=== PATIENT | male | born 1945 | race African-American/Black ===

== ENCOUNTER 2023-11-25 19:56 | Inpatient (IN) | payer OTHER ==
[2023-11-25] MEDS ORDERED: ACETAMINOPHEN INJECTION 100 ML IVPB ONE (20:32)
[2023-11-25] MEDS ORDERED: LIDOCAINE 4% PATCH TP ONE (21:03)
[2023-11-25 21:04] LABS: BASO % 0.5 % (0-2.0); EOS % 1.2 % (0-4.5); HEMATOCRIT 37.1 % (35.4-49); HEMOGLOBIN 12.4 GM/dL (11.7-16.9); LYMPH % 16.2 % (8-40); MCHC 33.5 g/dl (32.0-35.9); MEAN CELL VOLUME 95.5 fl (80-96); MEAN PLT VOLUME 7.5 fl (7.5-11.1); MONO % 11.7 % (3.8-10.2); NEUT % 70.4 % (42.8-82.8); PLATELET COUNT 268 10^3/uL (134-434); RBC 3.88 M/mm3 (4.00-5.60); RDW 14.7 % (11.9-15.9); WHITE BLOOD COUNT 9.4 K/mm3 (4.0-10.0)
[2023-11-25] MEDS ORDERED: KETOROLAC TROMETHAMINE 15 MG/ML VIAL ONE (21:04)
[2023-11-25] MEDS: LIDOCAINE 4% PATCH TP ONE (21:27)
[2023-11-25] MEDS: KETOROLAC TROMETHAMINE 15 MG/ML VIAL IVPUSH ONE (21:27)
[2023-11-25] MEDS: ACETAMINOPHEN 1000 MG/100 ML BAG IVPB ONE ×2 (21:27→21:28)
[2023-11-25] MEDS: LIDOCAINE PATCH REMOVAL MC SCH (21:32)
[2023-11-25] MEDS: morphine CARPU-JECT 4 MG/1 ML DISP.SYRIN IVPUSH ONE (21:32)
[2023-11-25 21:44] LABS: POTASSIUM 4.4 mmol/L (3.5-5.1)
[2023-11-25 21:46] LABS: CALCIUM 8.7 mg/dL (8.5-10.1)
[2023-11-25 21:47] LABS: ALBUMIN 3.8 g/dl (3.4-5.0); BLOOD UREA NITROGEN 39.8 mg/dL (7-18)
[2023-11-25 21:49] LABS: CREATININE 3.1 mg/dL (0.55-1.3)
[2023-11-25 21:51] LABS: TOT PROT 7.5 g/dl (6.4-8.2)
[2023-11-25 21:52] LABS: BILIRUBIN,TOTAL 0.5 mg/dL (0.2-1)
[2023-11-25] MEDS: SODIUM CHLORIDE 0.9% 500 ML INFUS.BAG IV ONE (22:12)
[2023-11-25 22:33] LABS: EPI CELLS 3 /uL (0-25.1); HYALINE CASTS 0 /uL (0-3.1); URINE APPEARANCE CLEAR; URINE BACTERIA 2 /uL (0-1359); URINE BILIRUBIN NEGATIVE (NEGATIVE); URINE COLOR YELLOW; URINE GLUCOSE (UA) 2+ (NEGATIVE); URINE KETONE NEGATIVE (NEGATIVE); URINE LEUK ESTERASE NEGATIVE (NEGATIVE); URINE NITRITE NEGATIVE (NEGATIVE); URINE PROTEIN 1+ (NEGATIVE); URINE RBC 6 /uL (0-23.9); URINE WBC 12 /uL (0-25.8)
[2023-11-25] MEDS ORDERED: ACETAMINOPHEN 325 MG TABLET (FP) PO PRN (22:48)
[2023-11-25] MEDS ORDERED: KETOROLAC TROMETHAMINE 15 MG/ML VIAL IVPUSH PRN (22:48)
[2023-11-25] MEDS ORDERED: CEFTRIAXONE 1 GM/50 ML BAG ONE (23:39)
[2023-11-25] MEDS: CEFTRIAXONE 1 GM in DEXTROSE 5%-WATER - 50 ML IVPB SCH (23:49)
[2023-11-25] MEDS: SODIUM CHLORIDE 1,000 ML IV SCH (23:50)
[2023-11-26] MEDS: NIFEdipine 10 MG CAPSULE (FP) PO ONE (02:17)
[2023-11-26] MEDS: LACTATED RINGERS SOLUTION 1,000 ML/1,000 ML INFUS.BAG IV SCH (02:17)
[2023-11-26] MEDS ORDERED: NIFEdipine 10 MG CAPSULE (FP) PO SCH (06:00)
[2023-11-26] MEDS: hydrALAZINE HCL 20 MG/ML VIAL IVPUSH PRN (06:48)
[2023-11-26] MEDS: LABETALOL HCL 200 MG TABLET (FP) PO SCH (06:59)
[2023-11-26 08:06] LABS: BASO % 0.4 % (0-2.0); EOS % 2.9 % (0-4.5); HEMATOCRIT 38.7 % (35.4-49); HEMOGLOBIN 12.9 GM/dL (11.7-16.9); LYMPH % 22.6 % (8-40); MCH 32.3 pg (25.7-33.7); MCHC 33.4 g/dl (32.0-35.9); MEAN CELL VOLUME 96.7 fl (80-96); MEAN PLT VOLUME 7.9 fl (7.5-11.1); NEUT % 63.1 % (42.8-82.8); PLATELET COUNT 270 10^3/uL (134-434); RDW 14.6 % (11.9-15.9); WHITE BLOOD COUNT 9.6 K/mm3 (4.0-10.0)
[2023-11-26 08:13] LABS: POTASSIUM 4.6 mmol/L (3.5-5.1)
[2023-11-26 08:18] VITALS: BMI 30.4
[2023-11-26 08:19] LABS: CALCIUM 8.8 mg/dL (8.5-10.1)
[2023-11-26 08:20] LABS: BLOOD UREA NITROGEN 34.3 mg/dL (7-18); MAGNESIUM 2.4 mg/dL (1.8-2.4)
[2023-11-26 08:22] LABS: CREATININE 2.7 mg/dL (0.55-1.3); PHOSPHOROUS 2.6 mg/dL (2.5-4.9)
[2023-11-26 08:24] LABS: BILIRUBIN,TOTAL 0.5 mg/dL (0.2-1); TOT PROT 8.1 g/dl (6.4-8.2)
[2023-11-26] MEDS: TAMSULOSIN HCL 0.4 MG CAP PO SCH (08:40)
[2023-11-26] MEDS: amLODIPine BESYLATE 10 MG TABLET (FP) PO SCH (09:05)
[2023-11-26] MEDS: HEPARIN NA (PORCINE) 5,000 UNITS/ML 1ML VIAL SQ SCH (09:05)
[2023-11-26] MEDS: NIFEdipine 10 MG CAPSULE (FP) PO SCH (09:11)
[2023-11-26] MEDS ORDERED: hydrALAZINE HCL 20 MG/ML VIAL IVPB PRN (11:39)
[2023-11-26 18:12] VITALS: RESP 18
[2023-11-26] MEDS: hydrALAZINE HCL 20 MG/ML VIAL IVPUSH ONE (18:47)
[2023-11-26] MEDS: SODIUM CHLORIDE 0.45% 1,000 ML IV SCH (22:13)
[2023-11-27 06:22] VITALS: BP 141/87; PULSE 73; TEMP 97.3
[2023-11-27 08:50] LABS: BASO % 0.4 % (0-2.0); EOS % 3.4 % (0-4.5); HEMOGLOBIN 11.8 GM/dL (11.7-16.9); MCH 32.6 pg (25.7-33.7); MCHC 33.7 g/dl (32.0-35.9); MEAN CELL VOLUME 96.7 fl (80-96); MEAN PLT VOLUME 7.8 fl (7.5-11.1); MONO % 10.4 % (3.8-10.2); NEUT % 62.8 % (42.8-82.8); PLATELET COUNT 242 10^3/uL (134-434); RBC 3.62 M/mm3 (4.00-5.60); RDW 14.7 % (11.9-15.9); WHITE BLOOD COUNT 7.9 K/mm3 (4.0-10.0)
[2023-11-27 09:08] LABS: POTASSIUM 4.2 mmol/L (3.5-5.1)
[2023-11-27 09:12] LABS: ALBUMIN 3.6 g/dl (3.4-5.0); BLOOD UREA NITROGEN 33.1 mg/dL (7-18); MAGNESIUM 2.4 mg/dL (1.8-2.4)
[2023-11-27 09:15] LABS: CREATININE 2.8 mg/dL (0.55-1.3)
[2023-11-27 09:16] LABS: BILIRUBIN,TOTAL 0.6 mg/dL (0.2-1); TOT PROT 7.1 g/dl (6.4-8.2)
[2023-11-28 16:09] LABS: C-ANCA <1:20 titer (Neg:<1:20)
[2023-12-01 13:07] LABS: ALBUMIN % 35.9 % (.); ALPHA-1 FOR UPE 2.9 % (.); TOTAL PROTEIN, URINE 15.9 mg/dL (Not Estab.)
== END 2023-11-27 14:00 | disposition left against medical advice (07) | DRG 305 ==
LOC: JER 19:56 → JERBED 22:14 → J7W 11-26 05:18
PROVIDERS: ADMIT Internal Medicine; ATTEND Nurse Practitioner Acute Care
DX: I16.0 Hypertensive urgency (principal); N17.9 Acute kidney failure, unspecified; M54.9 Dorsalgia, unspecified; I34.1 Nonrheumatic mitral (valve) prolapse; N20.0 Calculus of kidney
CPT/HCPCS: 0241U-QW; 36415; 70450-TC; 72131-TC; 72148-TC; 72170-TC-FY; 74176-TC; 76775-TC; 80053; 81003; 82570; 83036; 83520; 83735; 83883; 84100; 84155; 84156; 84165; 84166; 84484; 85025; 86038; 86256; 87086; 93005; 93010; 93306-TC; 97116-GP; 97162-GP; 99285-25; J0131; J1644

== ENCOUNTER 2024-02-16 04:14 | Day surgery (SDC) | payer OTHER ==
[2024-02-12 17:54] VITALS: BMI 30.5
[2024-02-16 07:21] VITALS: RESP 18
[2024-02-16] MEDS ORDERED: MIDAZOLAM HCL 2 MG/2 ML SINGLE DOSE VIAL ONE (12:10)
[2024-02-16 13:05] VITALS: TEMP 96.8
[2024-02-16 14:05] VITALS: BP 152/80; PULSE 85
== END 2024-02-16 14:15 | disposition home or self-care (01) ==
LOC: JASU-SURG 04:14
PROVIDERS: ATTEND Urology
PROC: 0TF4XZZ Fragmentation in Left Kidney Pelvis, External Approach (ICD-10-PCS; principal; 2024-02-16 12:18)
DX: N20.0 Calculus of kidney (principal)

== ENCOUNTER 2024-04-26 04:04 | Day surgery (SDC) | payer OTHER ==
[2024-04-22 10:18] VITALS: BMI 30.5
[2024-04-26] MEDS ORDERED: MIDAZOLAM HCL 2 MG/2 ML SINGLE DOSE VIAL ONE (09:30)
[2024-04-26 11:07] VITALS: PULSE 64; TEMP 97
[2024-04-26 11:27] VITALS: BP 160/70; RESP 18
== END 2024-04-26 11:28 | disposition home or self-care (01) ==
LOC: JASU-SURG 04:04
PROVIDERS: ATTEND Urology
PROC: 0TF4XZZ Fragmentation in Left Kidney Pelvis, External Approach (ICD-10-PCS; principal; 2024-04-26 09:41)
DX: N20.0 Calculus of kidney (principal)
CPT/HCPCS: 82962

== ENCOUNTER 2024-06-21 07:30 | Day surgery (SDC) | payer OTHER ==
[2024-06-21 12:18] VITALS: TEMP 96.9
[2024-06-21] MEDS ORDERED: MIDAZOLAM HCL 2 MG/2 ML SINGLE DOSE VIAL ONE (14:06)
[2024-06-21 15:40] VITALS: BP 181/89; PULSE 86; RESP 20
== END 2024-06-21 15:43 | disposition home or self-care (01) ==
LOC: JASU-SURG 07:30
PROVIDERS: ATTEND Urology
PROC: 0TF4XZZ Fragmentation in Left Kidney Pelvis, External Approach (ICD-10-PCS; principal; 2024-06-21 13:30)
DX: N20.0 Calculus of kidney (principal)